=== PATIENT | male | born 1945 | race Caucasian/White ===

== ENCOUNTER → 2021-06-18 15:01 | Outpatient (CLI) | payer MEDICARE, SELFPAY ==
--- NOTE | ~2021-06-18 | XR_ITS ---
XR knee RT min 4V DATE: 06/18/2021 15:22 INDICATION: Right knee pain. Knee gives out. No recent injury. TECHNIQUE: [place], AP, PA and lateral views COMPARISON: None FINDINGS: There is osteopenia. There is severe tricompartment osteoarthritis, most severe at the lateral component with complete obl iteration of lateral compartment joint space. There is prominent periarticular spurring at the patell ofemoral joint. There is degenerative cystic change subjacent to the medial tibial spine. There is va lgus deformity of the right knee. No fracture or dislocation, periosteal reaction or bone destruction, radiopaque intra-articular loose body or chondrocalcinosis is evident. IMPRESSION: Severe tricompartment osteoarthritis Osteopenia Valgus deformity Reviewed, dictated and finalized at location B. 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
== END ==
PROVIDERS: PCP Family Medicine; Visit Provider Family Medicine
DX: M25.561 Pain in right knee (principal); M17.11 Unilateral primary osteoarthritis, right knee; M85.861 Other specified disorders of bone density and structure, right lower leg; M21.061 Valgus deformity, not elsewhere classified, right knee
CPT/HCPCS: 73564

== ENCOUNTER → 2022-08-30 10:48 | Outpatient (CLI) | payer MEDICARE, SELFPAY ==
--- NOTE | ~2022-08-30 | XR_ITS ---
Cervical Spine: AP, lateral, open-mouth views Clinical History: Pain Findings: The normal lordotic curve is maintained. No fracture or sublocation seen. There is mild deg enerative disc change at C4-C5, C5-C6, and C6-C7. There is mild facet arthropathy the mid to lower th oracic spine. Pre-vertebral soft tissues are unremarkable. Impression: Mild degenerative spondylosis, as above. Reviewed, dictated and finalized at location M. Impression: Mild degenerative spondylosis, as above.
== END ==
PROVIDERS: PCP Family Medicine; Visit Provider Nurse Practitioner Family
DX: M54.2 Cervicalgia (principal)
CPT/HCPCS: 72040

== ENCOUNTER 2022-10-27 10:36 | Outpatient (CLI) | payer MEDICARE, SELFPAY ==
--- NOTE | ~2022-10-27 | CT_ITS ---
EXAMINATION: CT cervical spine wo con DATE: 10/27/2022 10:53 INDICATION: Spondylosis without myelopathy TECHNIQUE: Computed tomography (CT) of the cervical spine was performed without intravenous contrast. Automated exposure control and iterative reconstruction technique were employed. The dose-length pro duct was 229.04 mGy-cm. COMPARISON: Cervical spine radiographs dated 08/30/2022 FINDINGS: Alignment is normal. Vertebral body heights are normal. Moderate disc height loss at C4-C5 through C6 -C7. Mild disc height loss at C3-C4, T1-T2 and T2-T3 there is developing fusion across the disc space and left uncovertebral joint at C4-C5. Small amount of atherosclerotic calcification at the bilatera l carotid bulbs. Cervical soft tissues are otherwise unremarkable. Severe emphysema the apices of thomas gs. The following disc levels are specifically discussed: C2-C3: There is minimal bilateral uncovertebral joint osteoarthritis. There is mild bilateral facet joint osteoarthritis. There is no neural foraminal stenosis. There is no central canal stenosis. C3-C4: Small posterior disc osteophyte complex. There is moderate to severe right and severe left unc overtebral joint osteoarthritis. There is moderate right and severe left facet joint osteoarthritis. There is mild right and moderate left neural foraminal stenosis. There is altered central canal steno sis. C4-C5: Disc is mildly bulging. There is mild right uncovertebral joint osteoarthritis. Moderate hyper trophic changes with fusion across the left uncovertebral joint. Prominent hypertrophic changes and f usion across the left facet joint. Mild osteoarthritis with developing fusion across the margins of t he right facet joint. There is mild left neural foraminal stenosis. There is mild central canal steno sis. C5-C6: Posterior disc osteophyte complex. There is severe bilateral uncovertebral joint osteoarthriti s. There is mild right and moderate left facet joint osteoarthritis. There is mild bilateral neural f oraminal stenosis. There is mild central canal stenosis. C6-C7: Posterior disc osteophyte complex. There is severe bilateral uncovertebral joint osteoarthriti s. There is moderate bilateral facet joint osteoarthritis. There is mild bilateral neural foraminal s tenosis. There is mild central canal stenosis. C7-T1: There is minimal bilateral uncovertebral joint osteoarthritis. There is severe bilateral facet joint osteoarthritis. There is mild bilateral neural foraminal stenosis. There is no central canal s tenosis. IMPRESSION: 1. Moderate cervical spondylosis. 2. Severe emphysema at the bilateral apices of lungs. Reviewed, dictated and finalized at location A.
== END 2022-10-27 10:37 ==
PROVIDERS: PCP Family Medicine; Visit Provider Pain Medicine Pain Medicine
DX: M47.812 Spondylosis without myelopathy or radiculopathy, cervical region (principal); J43.9 Emphysema, unspecified
CPT/HCPCS: 72125

== ENCOUNTER 2023-04-19 06:34 | Outpatient (CLI) | payer MEDICARE, SELFPAY ==
--- NOTE | ~2023-04-19 | XR_ITS ---
EXAMINATION:XR cervical spine 4-5V DATE: 04/19/2023 07:08 INDICATION: Neck pain TECHNIQUE: AP, lateral in neutral, flexion, extension, and odontoid views of the cervical spine are p rovided. COMPARISON: 08/30/2022 FINDINGS: There are 2 mm of retrolisthesis of C5 on C6. No hypermobility is present with flexion or e xtension. The odontoid process is intact. No fracture is identified. There is moderate loss of interv ertebral disc space height at C5-6 and C6-7. The vertebral body heights are maintained. There is mult ilevel moderate facet and uncovertebral joint osteoarthritis. Prevertebral soft tissues are normal. S mall degenerative osteophytes project from the anterior endplates of multiple vertebral bodies. IMPRESSION: 1. Moderate cervical spondylosis without acute findings or significant interval change. Reviewed, dictated and finalized at location L. ICAL MANAGER
--- NOTE | ~2023-04-19 | MR_ITS ---
MRI of the cervical spine Clinical History: Spondylosis Technique: Axial T2-weighted and gradient images, and sagittal T1-weighted, T2-weighted, and STIR elmer ges were acquired. Findings: There is no fracture or subluxation of the cervical spine. Vertebral bodies maintain normal height and alignment. There is mildly heterogeneous marrow signal, compatible with reactive changes due to underlying degenerative disc disease and a red marrow conversion. No suspicious bone marrow si gnal abnormality seen. At C2-C3, there is no disc bulge or herniation. No spinal canal stenosis, cord compression, or neural foraminal narrowing. At C3-C4, there is minimal disc ossify complex and mild facet arthropathy bilaterally. No juhi spina l canal stenosis or cord compression. Possible minimal left neural foraminal narrowing. Right neural foramen preserved. At C4-C5, there is no significant disc bulge. There is minimal facet arthropathy. No central canal st enosis, cord compression, or neural foraminal narrowing. At C5-C6, there is advanced degenerative disc narrowing. There is mild disc osteophyte complex with m ild facet arthropathy. Probable minimal bilateral neural foraminal narrowing. No central canal stenos is or cord compression. At C6-C7, there is advanced degenerative disc narrowing. There is mild disc ossify complex. No juhi spinal canal stenosis or cord compression. There is probable left neural foraminal narrowing. Right n eural foramen preserved. No abnormal signal seen in the spinal cord. Paravertebral soft tissues are unremarkable. Impression: Mild degenerative spondylosis overall, as detailed above. Reviewed, dictated and finalized at [facility]. RNMENT GAUGER Impression: Mild degenerative spondylosis overall, as detailed above.
== END 2023-04-19 06:35 | disposition home or self-care (01) ==
PROVIDERS: PCP Family Medicine; Visit Provider Neurological Surgery
DX: M47.812 Spondylosis without myelopathy or radiculopathy, cervical region (principal)
CPT/HCPCS: 72050; 72141

== ENCOUNTER 2023-07-01 19:30 | Inpatient (IN) | payer MEDICARE, SELFPAY ==
--- NOTE | ~2023-07-01 | CT_ITS ---
EXAMINATION: CT abdomen pelvis wo con DATE: 07/01/2023 23:14 INDICATION: Renal failure TECHNIQUE: Computed tomography (CT) of the abdomen and pelvis was performed without intravenous contr ast. The dose-length product (DLP) was 324.84 mGy-cm. Automated exposure control and iterative recons truction technique were employed. COMPARISON: None FINDINGS: The lung bases are clear. The heart size is normal. Changes of cholecystectomy are noted. P unctate calcifications in otherwise normal appearing liver and spleen likely represent healed granulo matous disease. Punctate calcifications of the pancreas may reflect chronic pancreatitis. The adrenal glands are unremarkable. There is marked distention of the urinary bladder resulting in moderate to severe bilateral hydroureteronephrosis. There is calcified atherosclerosis of the aorta and many of t he other arteries. No pathologically enlarged abdominal or pelvic lymph nodes are identified. No free intraperitoneal gas or evidence of bowel obstruction. There is mild lumbar spondylosis. IMPRESSION: 1. Marked distention of the urinary bladder with resulting moderate to severe bilateral hydroureteron ephrosis. Reviewed, dictated and finalized at location F. ESTRA LEADER IMPRESSION: 1. Marked distention of the urinary bladder with resulting moderate to severe b ilateral hydroureteronephrosis.
--- NOTE | ~2023-07-01 | US_ITS ---
EXAMINATION: US renal BI DATE: 07/04/2023 16:43 INDICATION: Bilateral hydronephrosis TECHNIQUE: Multiple ultrasound grayscale images of the kidneys were obtained. COMPARISON: CT dated 07/01/2023 FINDINGS: The right kidney measures 10.7 x 5.6 x 5.8 cm. The left kidney measures 10.9 x 4.9 x 5.2 cm. The kidn eys demonstrate normal echogenicity. There is mild bilateral hydronephrosis. No stones identified. Th ere is large amount of hypoechoic material with punctate echogenic foci in the bladder lumen surround ing the bulb of a Johnson catheter.. IMPRESSION: 1. Mild hydronephrosis in both kidneys which appear otherwise normal. 2. Large amount of hypoechoic material filling the bladder surrounding the Johnson catheter with no gisell dent correlate on the recent prior CT suggesting this represents acute clot. Reviewed, dictated and finalized at location A. CTOR MEDICAL SCIENCE IMPRESSION: 1. Mild hydronephrosis in both kidneys which appear otherwise normal. 2. Large amount of hypoechoic material filling the bladder surrounding the Fole y catheter with no evident correlate on the recent prior CT suggesting this rep resents acute clot.
[2023-07-01 20:10] VITALS: BP 141/77; PULSE 81; RESP 18; TEMP 36.6; O2SAT 99
[2023-07-01 20:41] LABS: Basophils Percent Auto 0.4 % (0.2-1.2); Eosinophils Absolute Auto 0.4 K/mm3 (0-0.3); Eosinophils Percent Auto 5.1 % (0-4.4); Hematocrit 31.4 % (42.0-52.0); Hemoglobin 10.7 g/dL (14.0-18.0); Immature Granulocyte Absolute 0.08 K/mm3 (0.00-0.031); Immature Granulocyte Percent A 1.1 % (0-0.5); Lymphocytes Absolute Auto 1.99 K/mm3 (0.9-3.2); Lymphocytes Percent Auto 26.6 % (18.3-44.2); Mean Corpuscular HGB Conc 34.1 g/dl (32-36); Mean Corpuscular Hemoglobin 29.9 pg (26-34); Mean Corpuscular Volume 87.7 fl (80-100); Mean Platelet Volume 9.7 fl (7.4-10.4); Monocytes Absolute Auto 0.6 K/mm3 (0.1-0.6); Monocytes Percent Auto 7.5 % (2.6-8.5); Neutrophils Absolute Auto 4.5 K/mm3 (1.3-6.7); Neutrophils Percent Auto 59.3 % (45.5-73.1); Platelet Count Result 182 k/mm3 (150-375); Red Blood Count 3.58 M/mm3 (4.6-6.20); Red Cell Distribution Width 13.8 % (11.5-14.5); White Blood Count 7.5 K/mm3 (4.5-10.0)
[2023-07-01 20:48] LABS: Alanine Aminotransferase 13 U/L (6-50); Albumin Level 4.9 g/dL (3.5-5.1); Alkaline Phosphatase 58 U/L (38-126); Anion Gap 11 mmol/L (8-16); Aspartate Amino Transferase 17 U/L (17-59); Bilirubin,Total 0.4 mg/dL (0.2-1.3); Blood Urea Nitrogen 53 mg/dL (9-20); Calcium 10.1 mg/dL (8.4-10.2); Carbon Dioxide 23 mmol/L (22-30); Chloride 106 mmol/L (98-107); Estimated CRCL calculation 16 ml/min; Estimated Glomerular Filt Rate 15; Glucose 85 mg/dL (65-110); Potassium 4.3 mmol/L (3.4-5.0); Sodium 140 mmol/L (137-145)
[2023-07-01 20:53] LABS: Appearance Urine Clear (Clear); Bacteria Urine None Seen /hpf; Bilirubin Urine Negative (Negative); Blood Urine Trace (Negative); Color Urine Yellow (Yellow); Glucose Urine UA Negative (Negative); Ketones Urine Negative (Negative); Leukocyte Esterase Ur Negative LEU/UL (Negative); Nitrate Urine Negative (Negative); Non Pathogenic Casts 0-2; Protein Urine Negative (Negative); RBC Urine 0-2 /hpf (0-2); Specific Grav Ur 1.007 (1.001-1.035); Squamous Epithelial Cell Urine None seen /hpf (Few); Urobilinogen Urine 0.2 mg/dL (<2.0); WBC Urine 0-5 /hpf
[2023-07-01 20:59] LABS: Add Urine Microscopic? YES
[2023-07-01] MEDS: SODIUM CHLORIDE 0.9% IV 1,000 ML 999 ML IV CONT (22:52)
[2023-07-01 22:56] VITALS: PULSE 67; RESP 15; O2SAT 100
--- NOTE | 2023-07-01 23:53 | ED.GENADULT ---
HPI - General Adult General Chief complaint: Recheck/Abnormal Lab/Rx Stated complaint: dx with AKF, wants 2nd opinion Time Seen by Provider: 07/01/23 22:37 History of Present Illness HPI narrative: Patient is a 77-year-old gentleman who presents emergency department with chief complaint of renal failure. Patient reports that he had outpatient labs done in the [place] system that showed that his kidney function was not doing well. The patient was instructed to go to the emergency department. The patient reports that he is not having any other real significant complaints does report that he has normal urinary function denies shortness of breath or chest pain. The patient reports that he does not want to be admitted at the [facility] Related Data Home Medications Medication Instructions Recorded Confirmed quetiapine 100 mg tablet 100 mg PO .COMPLEX 10/02/19 01/24/23 bupropion HCl 100 mg tablet,12 hr 100 mg PO BID 07/01/22 01/24/23 sustained-release (Wellbutrin SR) potassium chloride 10 mEq 10 meq PO DAILY 07/01/22 01/24/23 tablet,extended release Allergies Allergy/AdvReac Type Severity Reaction Status Date / Time pollen extracts Allergy Itching Verified 07/01/23 20:13 Review of Systems Review of Systems: A 10 system review of systems was completed on the patient and is negative except for what is stated in the HPI. Nursing and ancillary documentation was reviewed. [facility] Past Medical History Medical History Acute bronchitis Acute non-recurrent maxillary sinusitis BMI 26.0-26.9,adult BMI 28.0-28.9,adult COVID-19 (~01/2022) positive test on 03/01/2022 with symptoms for 3 weeks. Enlarged liver Folate deficiency anemia (08/03/21) level low at 4.6 on 08/03/2021. Microscopic hematuria (08/03/21) trace blood on urinalysis 08/03/2021. Myalgia of muscle of neck Neck Pain X-ray of the C-spine on 08/30/2022 with mild degenerative arthritis and spondylosis. CT of the cervical spine ordered by Pain Management on 10/27/2022 reveals moderate cervical spondylosis with severe emphysema noted at the apices. Osteoarthritis of right knee Seasonal allergic rhinitis Tremor Unexplained weight loss TSH normal at 1.42 on 08/03/2021. Surgical History Surgical History History of cholecystectomy History of right knee surgery Family History Family History Mother Patient's mother is Family history of malignant neoplasm Father Family history of cardiovascular disease, Onset Age: 72 Social History Social History Smoking packs per day: 0.5 Smoking cigarettes per day: 10.0 Years smoked: 60 Smoking pack-years: 30.00 Smoking status: Current every day smoker Tobacco type: cigarettes Alcohol intake: current Substance use: never Substance use type: does not use Do You Feel Safe in your Home?: Yes Lack of Transportation: No Lack of Food: Never True Current Housing: I Have Housing Concerned About Future Housing: No Difficulty Paying Gas/Electric Bills: No Difficulty Paying for Meds: No Currently Unemployed: No Education: High School Diploma/GED Difficulty w/ Childcare or Family Care: No Living arrangements: with family Gender identity (if verbalized by the patient): Male Exam Narrative: GENERAL: Well-appearing, well-nourished, and in no acute distress. HEAD: Normocephalic, atraumatic. EYES: PERRLA and EOMI. ENT: Nares clear, no rhinorrhea or epistaxis. Mucous membranes moist. NECK: Supple. CHEST: Clear to auscultation. No respiratory distress. HEART: Regular rate and rhythm. No murmur heard. Normal peripheral pulses. ABDOMEN: Soft, nontender, nondistended, normal active bowel sounds. EXTREMITIES: Normal range of motio
[2023-07-02] VITALS (8 sets, daily range): BP systolic 122–166; BP diastolic 50–80; PULSE 68–83; RESP 15–18; TEMP 36.8–37.4; O2SAT 95–100
[2023-07-02] MEDS: SODIUM CHLORIDE 0.9% IV 1,000 ML 125 ML IV CONT ×3 (01:55→20:40)
--- NOTE | 2023-07-02 03:06 | ADMGEN ---
This patient, Marce Jarvis, was admitted to Medical Room 347-. Patient/family oriented to hospital policies and general routines including ID bracelet, bed and alarms, visiting hours, pain management, procedures, bathroom and other care routines, personal items, smoking policy, room service/diet, and visiting hours. Information on how to activate the Rapid Response Team has been discussed. Patient/Family are encouraged to report perceived risks to care and to ask questions if they do not understand what they are told or what they should do.
--- NOTE | 2023-07-02 05:24 | PM.IMHP ---
H&P: HPI History of Present Illness Date/Time: 07/02/23 05:24 Chief Complaint: Renal failure on outpatient labs Narrative: 77-year-old male with past medical history of hyperlipidemia, COPD, chronic atrial fibrillation on chronic anticoagulation among other medical comorbidities who presented to the ER after outpatient labs demonstrated acute renal failure. The patient reports that he was getting his yearly labs and got a call that his creatinine was elevated and he needed to go to the ER. In hindsight he now realizes that he was probably having difficulty urinating for a while. He reports he has had a weak urinary stream for at least 1 month. He has had increased urinary urgency and sensation of incomplete bladder emptying. He denied any dysuria or or gross hematuria. However after Johnson catheter was placed in the ER patient had gross hematuria. He had 1.7 L of retained urine on presentation to the ER. He denies a known history of BPH. He has not had any associated nausea, vomiting or decreased appetite. In hindsight he does notice that his abdomen had been more distended especially in the last week. He denied any fatigue or shortness of breath. He does have a history of COPD but reports that his breathing is stable. He denies any significant coronary artery disease history but he does have chronic atrial fibrillation and is on Xarelto. Review of Systems Review of Systems: 12 systems were reviewed with pertinent positives and negatives per HPI. Except as documented in the HPI, all other systems were reviewed and are negative. [facility] Past Medical History Medical History (Updated 07/02/23 @ 08:28 by Tatiana Awan, ) Acute bronchitis Cervical spondylosis X-ray of the cervical spine and MRI of the cervical spine on 04/19/2023 reveals advanced degenerative disc disease at C5-C6 and C6-C7 with facet arthropathy. Chronic anticoagulation Chronic anxiety Chronic atrial fibrillation Chronic depression COPD (chronic obstructive pulmonary disease) COVID-19 (~01/2022) positive test on 03/01/2022 with symptoms for 3 weeks. Enlarged liver Essential (primary) hypertension Folate deficiency anemia (08/03/21) level low at 4.6 on 08/03/2021. Microscopic hematuria (08/03/21) trace blood on urinalysis 08/03/2021. Mixed hyperlipidemia Total cholesterol 140, triglycerides 230, HDL 35, LDL 73 on 08/03/2021. Neck Pain X-ray of the C-spine on 08/30/2022 with mild degenerative arthritis and spondylosis. CT of the cervical spine ordered by Pain Management on 10/27/2022 reveals moderate cervical spondylosis with severe emphysema noted at the apices. Obstructive sleep apnea of adult Osteoarthritis of right knee Posttraumatic stress disorder Restless legs syndrome Iron 71 with 20% saturation and ferritin 44 on 08/03/2021. Seasonal allergic rhinitis Tobacco use disorder, continuous Tremor Type 2 diabetes mellitus without complication, without long-term current use of insulin Glucose 101 with hemoglobin A1c 5.2 on 08/03/2021. Surgical History Surgical History (Updated 07/02/23 @ 08:14 by Tatiana Awan DO) History of cholecystectomy History of colonoscopy with polypectomy History of right knee surgery Family History Family History Mother Patient's mother is Family history of malignant neoplasm Father Family history of cardiovascular disease, Onset Age: 72 Social History Social History (Updated 07/02/23 @ 08:16 by Tatiana Awan DO) Social History: He lives at home with his . He served in the for a total of 22 years. 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 He has smoked half a pack of cigarettes per day since he was 17. He used to drink quite heavily but has not done so in at least 20 years. He denies illicit substance use. Code status: Full code Surrogate decision maker: Smoking packs per day: 0.5 Smoking cig
[2023-07-02 05:39] LABS: Basophils Percent Auto 0.3 % (0.2-1.2); Eosinophils Absolute Auto 0.4 K/mm3 (0-0.3); Eosinophils Percent Auto 4.3 % (0-4.4); Hematocrit 26.8 % (42.0-52.0); Hemoglobin 9.3 g/dL (14.0-18.0); Immature Granulocyte Percent A 1.1 % (0-0.5); Lymphocytes Absolute Auto 1.69 K/mm3 (0.9-3.2); Lymphocytes Percent Auto 18.9 % (18.3-44.2); Mean Corpuscular HGB Conc 34.7 g/dl (32-36); Mean Corpuscular Hemoglobin 30.3 pg (26-34); Mean Corpuscular Volume 87.3 fl (80-100); Mean Platelet Volume 9.8 fl (7.4-10.4); Monocytes Absolute Auto 0.7 K/mm3 (0.1-0.6); Monocytes Percent Auto 7.4 % (2.6-8.5); Neutrophils Absolute Auto 6.1 K/mm3 (1.3-6.7); Platelet Count Result 162 k/mm3 (150-375); Red Blood Count 3.07 M/mm3 (4.6-6.20); Red Cell Distribution Width 13.8 % (11.5-14.5); White Blood Count 8.9 K/mm3 (4.5-10.0)
[2023-07-02 05:50] LABS: Anion Gap 5 mmol/L (8-16); Blood Urea Nitrogen 50 mg/dL (9-20); Carbon Dioxide 24 mmol/L (22-30); Chloride 111 mmol/L (98-107); Estimated CRCL calculation 17 ml/min; Estimated Glomerular Filt Rate 16; Glucose 126 mg/dL (65-110); Sodium 140 mmol/L (137-145)
[2023-07-02] MEDS: FLUTICASONE/SALMETEROL 115-21 MCG INHALER 1 PUFF 2 PUFF INHALATION ×2 (07:56→22:22)
[2023-07-02] MEDS: QUEtiapine FUMARATE 25 MG TABLET 50 MG PO (09:32)
[2023-07-02] MEDS: buPROPion HCL SR (12HR) 100 MG TABCR PO ×2 (09:32→20:37)
[2023-07-02] MEDS: ATORVASTATIN 20 MG TABLET PO (09:32)
[2023-07-02] MEDS: METOPROLOL SUCCINATE EXT REL 50 MG TABCR PO (09:32)
[2023-07-02] MEDS: FOLIC ACID 1 MG TABLET PO (09:32)
[2023-07-02] MEDS: ESCITALOPRAM OXALATE 10 MG TABLET 20 MG PO (09:33)
[2023-07-02] MEDS: DIGOXIN TAB 125 MCG TABLET PO (09:37)
[2023-07-02] MEDS: FLUTICASONE PROPIONATE 0.05% NA SPR 16 GM BTL (*BKC) 1 SPRAY NASAL ×2 (09:37→20:38)
[2023-07-02] MEDS: TAMSULOSIN HCL 0.4 MG CAPSULE PO (09:41)
[2023-07-02 10:31] LABS: Digoxin < 0.5 ng/mL (0.8-2.0)
--- NOTE | 2023-07-02 16:22 | WPDURCON ---
Assessment and Plan Assessment and plan (1) Acute urinary retention: Code(s): R33.8 - Other retention of urine Status: Acute Assessment and Plan: Maintain Johnson in place to gravity drainage. DO NOT REMOVE. (2) Bilateral hydronephrosis: Code(s): N13.30 - Unspecified hydronephrosis Status: Acute Assessment and Plan: Likely related to bladder outlet obstruction. Will consider renal ultrasound in 2-3 days to reassess. Continue to monitor renal function. (3) SANTOS (acute kidney injury): Code(s): N17.9 - Acute kidney failure, unspecified Status: Acute Assessment and Plan: Suspect post-renal etiology. Improving with bladder decompression. Continue to trend renal function. (4) Gross hematuria: Code(s): R31.0 - Gross hematuria Status: Acute Assessment and Plan: Suspect decompressive hematuria given large volume >1.7L retention. No need for CBI at this time. Notify urology if concerns regarding catheter drainage. (5) BPH with urinary obstruction: Code(s): N40.1 - Benign prostatic hyperplasia with lower urinary tract symptoms; N13.8 - Other obstructive and reflux uropathy Status: Acute Assessment and Plan: Continue Tamsulosin which was initiated during this hospitalization Urology Consult Note HPI Date Seen: 07/02/23 Requesting Physician: Tatiana Awan DO Primary Care Provider: Alexx Luciano MD Consult Narrative Narrative: Marce Jarvis is a 77 year old male with PMHx of A-fib on Xarelto, COPD, DM2, HLD for whom urology was consulted for acute on chronic urinary retention with SANTOS and bilateral hydroureteronephrosis. Patient reports over the past couple days he had difficulty urinating. He reports over the past 6 months he has started voiding nearly every hour during his waking hours. He denies history of frequent/recurrent UTI. He denies having a urologist in the past. He denies history of gross hematuria. He reports he has noticed his lower abdomen become more swollen over recent times. He denies prior spinal injury or spinal/pelvic surgery. He currently denies fevers, chills, nausea, vomiting, CP, SOB, or other concerns at this time. He reports tolerating his Johnson catheter fairly well. Review of Systems Cardiovascular: Cardiovascular: Denies chest pain, Denies lightheadedness, Denies palpitations and Denies dyspnea Respiratory: Respiratory: Denies dyspnea Gastrointestinal: Gastrointestinal: Denies diarrhea, Denies nausea and Denies vomiting Genitourinary: Genitourinary: Denies dysuria Endocrine: Endocrine: Denies palpitations [facility] Past Medical History Medical History (Updated 07/02/23 @ 16:30 by Nilson Briceno MD) Acute bronchitis Cervical spondylosis X-ray of the cervical spine and MRI of the cervical spine on 04/19/2023 reveals advanced degenerative disc disease at C5-C6 and C6-C7 with facet arthropathy. Chronic anticoagulation Chronic anxiety Chronic atrial fibrillation Chronic depression COPD (chronic obstructive pulmonary disease) COVID-19 (~01/2022) positive test on 03/01/2022 with symptoms for 3 weeks. Enlarged liver Essential (primary) hypertension Folate deficiency anemia (08/03/21) level low at 4.6 on 08/03/2021. Microscopic hematuria (08/03/21) trace blood on urinalysis 08/03/2021. Mixed hyperlipidemia Total cholesterol 140, triglycerides 230, HDL 35, LDL 73 on 08/03/2021. Neck Pain X-ray of the C-spine on 08/30/2022 with mild degenerative arthritis and spondylosis. CT of the cervical spine ordered by Pain Management on 10/27/2022 reveals moderate cervical spondylosis with severe emphysema noted at the apices. Obstructive sleep apnea of adult Osteoarthritis of right knee Posttraumatic stress disorder Restless legs syndrome Iron 71 with 20% saturation and ferritin 44 on 08/03/2021. Seasonal allergic rhinitis Tobacco use disorder, continuous Tremor Type 2 diabetes mellitus without complic
--- NOTE | 2023-07-02 17:13 | PM.IMPN ---
Progress Note: A&P Assessment and Plan (1) Acute renal failure: Qualifiers: Acute renal failure type: unspecified Qualified Code(s): N17.9 - Acute kidney failure, unspecified Code(s): N17.9 - Acute kidney failure, unspecified Status: Acute Assessment and Plan: Creatinine on 06/30 4.1, 3/to 3.8 Continue to monitor following decompression of urinary tract with Johnson catheter (2) BPH with urinary obstruction: Code(s): N40.1 - Benign prostatic hyperplasia with lower urinary tract symptoms; N13.8 - Other obstructive and reflux uropathy Status: Acute Assessment and Plan: Continue Johnson catheter (3) Type 2 diabetes mellitus without complication, without long-term current use of insulin: Code(s): E11.9 - Type 2 diabetes mellitus without complications Status: Acute Assessment and Plan: Continue to hold metformin and monitor blood sugars on sliding scale 3/2 remained euglycemic (4) Chronic anticoagulation: Code(s): Z79.01 - watermaster (current) use of anticoagulants Status: Acute Assessment and Plan: Xarelto for hx afib on hold due to bleeding (5) Tobacco use disorder, continuous: Code(s): F17.209 - Nicotine dependence, unspecified, with unspecified nicotine-induced disorders Status: Acute (6) Normocytic anemia: Code(s): D64.9 - Anemia, unspecified Status: Acute Assessment and Plan: Possibly due to combination of blood loss and renal failure (7) Gross hematuria: Code(s): R31.0 - Gross hematuria Status: Acute Assessment and Plan: Xarelto on hold Subjective Date/time seen: 07/02/23 17:13 Interval history: Complains of irritation at Johnson insertion site. Complains of restlessness and irritability. Usually smokes about 7 cigarettes per day. No alcohol or other recreational drug use. Denied chest pain or shortness of breath. Denied GI issues. Denied abnormal bleeding. Denied focal weakness or numbness. Appetite good. Review of Systems Review of Systems: All systems reviewed & are unremarkable except as noted in HPI and below Objective Data Vital Signs Vital Signs: Vital Signs - 24 hr 07/01/23 20:10 07/01/23 22:56 07/02/23 01:37 Temperature 97.9 F Pulse Rate 81 67 68 Respiratory Rate 18 15 15 Blood Pressure 141/77 H 166/80 H Pulse Oximetry 99 100 100 Oxygen Delivery Room Air 07/02/23 04:46 07/02/23 08:02 07/02/23 09:32 Temperature 98.2 F Pulse Rate 75 83 Respiratory Rate 18 Blood Pressure 157/77 H Pulse Oximetry 100 95 Oxygen Delivery Room Air 07/02/23 09:37 07/02/23 13:30 07/02/23 14:00 Temperature 98.2 F Pulse Rate 83 83 80 Respiratory Rate 18 Blood Pressure 122/55 L Pulse Oximetry 95 97 Oxygen Delivery Room Air Intake/Output Intake/Output: Intake & Output 06/29/23 06/30/23 07/01/23 07/02/23 23:59 23:59 23:59 23:59 Intake Total 2840 Output Total 2200 Balance 640 Meds/Results Medications: Active Medications Generic Name Dose Route Start Last Admin Trade Name Freq PRN Reason Stop Dose Admin Acetaminophen 650 mg 07/02/23 00:47 Acetaminophen 325 Mg Tablet PO Q4H PRN Mild Pain (1-3) or Fever Albuterol 2 puff 07/02/23 05:27 Albuterol Sulfate (*Sp) Aerosol 1 Puff INHALATION Q4HRT PRN shortness of breath or wheezing Atorvastatin Calcium 20 mg 07/02/23 09:00 07/02/23 09:32 Atorvastatin 20 Mg Tablet PO 20 mg DAILY RANDOLPH Administration Bupropion HCl 100 mg 07/02/23 09:00 07/02/23 09:32 Bupropion Hcl Sr (12hr) 100 Mg Tabcr PO 100 mg Q12HR RANDOLPH Administration Digoxin 125 mcg 07/02/23 09:00 07/02/23 09:37 Digoxin Tab 125 Mcg Tablet PO 125 mcg DAILY RANDOLPH Administration Escitalopram Oxalate 20 mg 07/02/23 09:00 07/02/23 09:33 Escitalopram Oxalate 10 Mg Tablet PO 20 mg DAILY RANDOLPH Administration Fluticasone Propionate 1 spray
[2023-07-02] MEDS: NICOTINE (*PBKC) 14 MG PATCH 1 PATCH TRANSDERM (17:56)
[2023-07-02] MEDS: MELATONIN 5 MG TABLET 10 MG PO (20:37)
[2023-07-02] MEDS: rOPINIRole HCL 0.25 MG TABLET PO (20:37)
[2023-07-02] MEDS: QUEtiapine FUMARATE 100 MG TABLET 300 MG PO (20:38)
[2023-07-03] VITALS (8 sets, daily range): BP systolic 119–133; BP diastolic 47–52; PULSE 71–81; RESP 16–18; TEMP 36.5–37.3; O2SAT 96–98
[2023-07-03] MEDS: FLUTICASONE/SALMETEROL 115-21 MCG INHALER 1 PUFF 2 PUFF INHALATION ×2 (07:48→20:40)
[2023-07-03 08:01] LABS: Hematocrit 24.3 % (42.0-52.0); Hemoglobin 8.2 g/dL (14.0-18.0); Mean Corpuscular HGB Conc 33.7 g/dl (32-36); Mean Corpuscular Hemoglobin 29.9 pg (26-34); Mean Corpuscular Volume 88.7 fl (80-100); Platelet Count Result 124 k/mm3 (150-375); Red Blood Count 2.74 M/mm3 (4.6-6.20); Red Cell Distribution Width 13.9 % (11.5-14.5); White Blood Count 6.4 K/mm3 (4.5-10.0)
[2023-07-03 08:16] LABS: Anion Gap 6 mmol/L (8-16); Blood Urea Nitrogen 43 mg/dL (9-20); Carbon Dioxide 23 mmol/L (22-30); Chloride 112 mmol/L (98-107); Estimated CRCL calculation 18 ml/min; Estimated Glomerular Filt Rate 17; Glucose 121 mg/dL (65-110); Sodium 141 mmol/L (137-145)
[2023-07-03] MEDS: SODIUM CHLORIDE 0.9% IV 1,000 ML 125 ML IV CONT ×2 (09:34→15:45)
[2023-07-03] MEDS: TAMSULOSIN HCL 0.4 MG CAPSULE PO (09:36)
[2023-07-03] MEDS: METOPROLOL SUCCINATE EXT REL 50 MG TABCR PO (09:37)
[2023-07-03] MEDS: FOLIC ACID 1 MG TABLET PO (09:37)
[2023-07-03] MEDS: buPROPion HCL SR (12HR) 100 MG TABCR PO ×2 (09:38→20:27)
[2023-07-03] MEDS: DIGOXIN TAB 125 MCG TABLET PO (09:38)
[2023-07-03] MEDS: ESCITALOPRAM OXALATE 10 MG TABLET 20 MG PO (09:38)
[2023-07-03] MEDS: QUEtiapine FUMARATE 25 MG TABLET 50 MG PO (09:38)
[2023-07-03] MEDS: NICOTINE (*PBKC) 14 MG PATCH 1 PATCH TRANSDERM (09:39)
[2023-07-03] MEDS: FLUTICASONE PROPIONATE 0.05% NA SPR 16 GM BTL (*BKC) 1 SPRAY NASAL ×2 (09:39→20:28)
[2023-07-03] MEDS: ATORVASTATIN 20 MG TABLET PO (09:40)
--- NOTE | 2023-07-03 11:39 | PM.IMPN ---
Progress Note: A&P Assessment and Plan (1) Acute renal failure: Qualifiers: Acute renal failure type: unspecified Qualified Code(s): N17.9 - Acute kidney failure, unspecified Code(s): N17.9 - Acute kidney failure, unspecified Status: Acute Assessment and Plan: Creatinine on 06/30 4.1, 07/01 3.8, 07/02 3.6 Continue to monitor following decompression of urinary tract with Renteria catheter (2) BPH with urinary obstruction: Code(s): N40.1 - Benign prostatic hyperplasia with lower urinary tract symptoms; N13.8 - Other obstructive and reflux uropathy Status: Acute Assessment and Plan: Continue Renteria catheter (3) Type 2 diabetes mellitus without complication, without long-term current use of insulin: Code(s): E11.9 - Type 2 diabetes mellitus without complications Status: Acute Assessment and Plan: Continue to hold metformin and monitor blood sugars on sliding scale 3/ remained euglycemic (4) Chronic anticoagulation: Code(s): Z79.01 - USP (current) use of anticoagulants Status: Acute Assessment and Plan: Xarelto for hx afib on hold due to bleeding (5) Tobacco use disorder, continuous: Code(s): F17.209 - Nicotine dependence, unspecified, with unspecified nicotine-induced disorders Status: Acute Assessment and Plan: 07/01 Nicotine patch 14 mg ordered (6) Normocytic anemia: Code(s): D64.9 - Anemia, unspecified Status: Acute Assessment and Plan: Possibly due to combination of blood loss and renal failure hgb 10.7, 06/30 9.3, 07/01 8.2 Continue to monitor (7) Gross hematuria: Code(s): R31.0 - Gross hematuria Status: Acute Assessment and Plan: Xarelto on hold (8) Cardiac murmur: Code(s): R01.1 - Cardiac murmur, unspecified Status: Acute Assessment and Plan: Echo pending Subjective Date/time seen: 07/03/23 11:39 Interval history: Feeling much better today. Slept well. Less anxious and irritable. Less pain at renteria site. Usually smokes about 7 cigarettes per day. No alcohol or other recreational drug use. Denied chest pain or shortness of breath. Denied GI issues. Denied abnormal bleeding. Denied focal weakness or numbness. Appetite good. Review of Systems Review of Systems: All systems reviewed & are unremarkable except as noted in HPI and below Exam Narrative: Weight 80 kg BMI 23.3 Const: Other: No acute distress, well-developed well-nourished, appears stated age HENMT: Other: Mucous membranes are moist, no oral pharyngeal erythema, edentulous in upper and lower jaw Eyes: Other: Pupils are equal and reactive, no scleral icterus, no conjunctival pallor Neck: Other: No JVD Resp: Other: Clear to auscultation bilaterally, no increased work of breathing Cardio: Other: Regular rate, NL S1,2, SOFT JU RUSB GI: Other: Soft, nontender, nondistended, positive bowel sounds : Other: Renteria in place Skin: Other: No pallor, non jaundice Neuro: Other: Alert oriented x4, speech is clear, no facial asymmetry, no localizing neurologic deficits noted on exam, hard of hearing Extrem: Other: No clubbing, cyanosis or edema, moves all extremities equally Psych: Other: Pleasant and cooperative, appropriate mood and affect, judgment and insight intact Objective Data Vital Signs Vital Signs: Vital Signs - 24 hr 07/02/23 13:30 07/02/23 14:00 07/02/23 19:59 Temperature 98.2 F 99.3 F Pulse Rate 83 80 78 Respiratory Rate 18 18 Blood Pressure 122/55 L 125/50 L Pulse Oximetry 95 97 100 Oxygen Delivery Room Air Fraction of Inspired Oxygen 07/02/23 20:00 07/03/23 04:36 07/03/23 07:48 Temperature 97.7 F Pulse Rate 71 Respiratory Rate 16 Blood Pressure 119/49 L Pulse Oximetry 98 96 Oxygen Delivery Room Air Room Air Fraction of In
--- NOTE | 2023-07-03 12:36 | WPDUROPN2 ---
Progress Note: A&P Assessment and Plan (1) SANTOS (acute kidney injury): Code(s): N17.9 - Acute kidney failure, unspecified Status: Acute Assessment and Plan: Improving incrementally. Continue to monitor renal function. (2) Acute urinary retention: Code(s): R33.8 - Other retention of urine Status: Acute Assessment and Plan: Maintain Johnson. Continue Tamsulosin. Consider void trial in 1-2 weeks, could be done as outpatient. (3) Bilateral hydronephrosis: Code(s): N13.30 - Unspecified hydronephrosis Status: Acute Assessment and Plan: Will consider renal ultrasound in 1-2 days to reassess for improvement/resolution of bilateral hydronephrosis (4) Gross hematuria: Code(s): R31.0 - Gross hematuria Status: Acute Assessment and Plan: Now resolved. Suspect this was due to decompressive hematuria. Subjective Subjective Date/Time Seen: 07/03/23 12:36 Interval history: No acute events overnight. Eating lunch during time of exam. Patient feeling overall better since hospital admission. Reports tolerating his Johnson well. Denies issues with Johnson clogging or needing to be hand irrigated. Review of Systems Cardiovascular: Cardiovascular: Denies chest pain, Denies lightheadedness, Denies palpitations and Denies dyspnea Respiratory: Respiratory: Denies dyspnea Gastrointestinal: Gastrointestinal: Denies diarrhea, Denies nausea and Denies vomiting Genitourinary: Genitourinary: Denies hematuria and Denies dysuria Endocrine: Endocrine: Denies palpitations Exam Const: General: comfortable and no acute distress Neck: Neck: supple Resp: Effort & Inspection: normal respiratory effort Cardio: Rate: regular rate GI: Inspection: non-distended GI Palp: Yes Soft to palpation and No Tenderness to palpation present (GI) Urinary Catheter: Urinary Catheter: patent and draining and urine clear Psych: Mental Status: mental status grossly normal Objective Data Vital Signs Vital Signs: Vital Signs - 24 hr 07/02/23 13:30 07/02/23 14:00 07/02/23 19:59 Temperature 36.8 C 37.4 C Pulse Rate 83 80 78 Respiratory Rate 18 18 Blood Pressure 122/55 L 125/50 L Pulse Oximetry 95 97 100 Oxygen Delivery Room Air Fraction of Inspired Oxygen 07/02/23 20:00 07/03/23 04:36 07/03/23 07:48 Temperature 36.5 C Pulse Rate 71 Respiratory Rate 16 Blood Pressure 119/49 L Pulse Oximetry 98 96 Oxygen Delivery Room Air Room Air Fraction of Inspired Oxygen 07/03/23 09:37 07/03/23 09:38 Temperature Pulse Rate 81 81 Respiratory Rate Blood Pressure Pulse Oximetry Oxygen Delivery Fraction of Inspired Oxygen Intake/Output Intake/Output: Intake & Output 06/30/23 07/01/23 07/02/23 07/03/23 23:59 23:59 23:59 23:59 Intake Total 4930 1540 Output Total 3200 1200 Balance 1730 340 Meds/Results Medications: Active Medications Generic Name Dose Route Start Last Admin Trade Name Freq PRN Reason Stop Dose Admin Acetaminophen 650 mg 07/02/23 00:47 Acetaminophen 325 Mg Tablet PO Q4H PRN Mild Pain (1-3) or Fever Albuterol 2 puff 07/02/23 05:27 Albuterol Sulfate (*Sp) Aerosol 1 Puff INHALATION Q4HRT PRN shortness of breath or wheezing Atorvastatin Calcium 20 mg 07/02/23 09:00 07/03/23 09:40 Atorvastatin 20 Mg Tablet PO 20 mg DAILY RANDOLPH Administration Bupropion HCl 100 mg 07/02/23 09:00 07/03/23 09:38 Bupropion Hcl Sr (12hr) 100 Mg Tabcr PO 100 mg Q12HR RANDOLPH Administration Digoxin 125 mcg 07/02/23 09:00 07/03/23 09:38 Digoxin Tab 125 Mcg Tablet PO 125 mcg DAILY RANDOLPH Administration Escitalopram Oxalate 20 mg 07/02/23 09:00 07/03/23 09:38 Escitalopram Oxalate 10 Mg Tablet PO 20 mg DAILY RANDOLPH Administration Fluticasone Propionate 1 spray 07/02/23 09:00 07/03/23 09:39 Fluticasone Propionate 0.05% Na Spr 16 Gm Btl (*Bkc) NASAL 1 spray Q12HR
[2023-07-03] MEDS: MELATONIN 5 MG TABLET 10 MG PO (20:27)
[2023-07-03] MEDS: rOPINIRole HCL 0.25 MG TABLET PO (20:27)
[2023-07-03] MEDS: QUEtiapine FUMARATE 100 MG TABLET 300 MG PO (20:27)
[2023-07-04] VITALS (8 sets, daily range): BP systolic 119–144; BP diastolic 53–67; PULSE 70–79; RESP 16–18; TEMP 36.8–37.1; O2SAT 97–99
--- NOTE | 2023-07-04 | ECHO_ITS ---
Patient Info Name: Marce Jarvis Age: 77 years : 1945 Gender: Male Ht: 73 in Wt: 176 lbs BSA: 2.03 m2 HR: 70 bpm BP: 120 / 53 mmHg Heart Rhythm: Sinus Rhythm Technical Quality: Fair Exam Date: 07/04/2023 10:57 AM Exam Location: Echo Lab Patient Status: Inpatient Admit Date: 07/02/2023 Staff Ordering Physician: Winston Waggoner MD Last Putter Away: Attending Provider: Tatiana Awan DO Referring Physician: Rosaline SHABAZZ; Exam Type: CA echo doppler color flow Study Info Indications R01.1 - Cardiac murmur, unspecified Complete two-dimensional, color flow and Doppler transthoracic echocardiogram is performed. Summary 1. Complete two-dimensional, color flow and Doppler transthoracic echocardiogram is performed. 2. Left ventricular chamber dimension is normal. 3. Left ventricular systolic function is normal, estimated at 65-70%. 4. There is mildly increased left ventricular wall thickness. 5. The left ventricular diastolic function is grade I diastolic dysfunction. 6. Left atrial chamber dimension is mildly enlarged. 7. There is moderate aortic valve stenosis with a peak velocity of 270 cm/s, mean gradient of 16 mmHg, and aortic valve area of 1.4 cm2. 8. There is mild mitral valve regurgitation. 9. The mitral valve annulus is moderately calcified. 10. There is mild pulmonic regurgitation. Left Ventricle Left ventricular chamber dimension is normal. Left ventricular systolic function is normal, estimated at 65-70%. There is mildly increased left ventricular wall thickness. The left ventricular diastolic function is grade I diastolic dysfunction. Right Ventricle Right ventricular chamber dimension is normal. Right ventricular systolic function is normal. Left Atria Left atrial chamber dimension is mildly enlarged. Right Atria Right atrial chamber dimension is normal. Atrial Septum Intact interatrial septum visualized by color flow imaging. Aortic Valve The aortic valve is probable trileaflet. There is moderate aortic valve stenosis with a peak velocity of 270 cm/s, mean gradient of 16 mmHg, and aortic valve area of 1.4 cm2. There is trace aortic valve regurgitation. Pulmonic Valve The pulmonic valve is normal. There is no pulmonic valve stenosis. There is mild pulmonic regurgitation. Mitral Valve There is no mitral valve stenosis. There is mild mitral valve regurgitation. The mitral valve annulus is moderately calcified. Tricuspid Valve The tricuspid valve leaflets are normal. There is no significant tricuspid valve stenosis. There is trace tricuspid valve regurgitation. Pericardium/Pleural The pericardium appears normal. There is no pericardial effusion. Inferior Vena Cava Normal inferior vena cava with >50% collapse upon inspiration consistent with normal right atrial pressure, 5 mmHg. Aorta The aortic root size at the sinus of Valsalva is normal. Left Ventricular Outflow Tract Name Value Normal LVOT 2D LVOT Diameter 2.0 cm LVOT Doppler LVOT Peak Gradient 6 mmHg LVOT Mean Gradient 3 mmHg LVOT VTI 24 cm LVOT VTI/AV VTI Ratio 0.4 LVO
[2023-07-04] MEDS: SODIUM CHLORIDE 0.9% IV 1,000 ML 125 ML IV CONT ×2 (02:21→14:41)
[2023-07-04 05:55] LABS: Hematocrit 23.7 % (42.0-52.0); Hemoglobin 7.7 g/dL (14.0-18.0); Mean Corpuscular HGB Conc 32.5 g/dl (32-36); Mean Corpuscular Hemoglobin 29.1 pg (26-34); Mean Corpuscular Volume 89.4 fl (80-100); Mean Platelet Volume 9.8 fl (7.4-10.4); Platelet Count Result 133 k/mm3 (150-375); Red Blood Count 2.65 M/mm3 (4.6-6.20); Red Cell Distribution Width 13.6 % (11.5-14.5); White Blood Count 5.4 K/mm3 (4.5-10.0)
[2023-07-04 06:24] LABS: Anion Gap 5 mmol/L (8-16); Blood Urea Nitrogen 37 mg/dL (9-20); Carbon Dioxide 23 mmol/L (22-30); Chloride 112 mmol/L (98-107); Estimated CRCL calculation 23 ml/min; Estimated Glomerular Filt Rate 21; Glucose 126 mg/dL (65-110); Iron 45 ug/dL (49-181); Potassium 3.7 mmol/L (3.4-5.0); Sodium 140 mmol/L (137-145)
[2023-07-04 06:35] LABS: Percent Iron Saturation 20 % (20-50)
[2023-07-04] MEDS: FLUTICASONE/SALMETEROL 115-21 MCG INHALER 1 PUFF 2 PUFF INHALATION ×2 (07:48→20:56)
[2023-07-04] MEDS: FOLIC ACID 1 MG TABLET PO (09:06)
[2023-07-04] MEDS: buPROPion HCL SR (12HR) 100 MG TABCR PO ×2 (09:06→20:42)
[2023-07-04] MEDS: QUEtiapine FUMARATE 25 MG TABLET 50 MG PO (09:06)
[2023-07-04] MEDS: ESCITALOPRAM OXALATE 10 MG TABLET 20 MG PO (09:06)
[2023-07-04] MEDS: TAMSULOSIN HCL 0.4 MG CAPSULE PO (09:06)
[2023-07-04] MEDS: ATORVASTATIN 20 MG TABLET PO (09:06)
[2023-07-04] MEDS: METOPROLOL SUCCINATE EXT REL 50 MG TABCR PO (09:06)
[2023-07-04] MEDS: DIGOXIN TAB 125 MCG TABLET PO (09:07)
[2023-07-04] MEDS: NICOTINE (*PBKC) 14 MG PATCH 1 PATCH TRANSDERM (09:07)
--- NOTE | 2023-07-04 09:48 | WPDUROPN2 ---
Progress Note: A&P Assessment and Plan (1) Acute urinary retention: Code(s): R33.8 - Other retention of urine Status: Acute Assessment and Plan: Maintain Johnson. Continue Tamsulosin. Consider void trial in 1-2 weeks, could be done as outpatient. (2) Bilateral hydronephrosis: Code(s): N13.30 - Unspecified hydronephrosis Status: Acute Assessment and Plan: Will plan for repeat renal ultrasound today to assess for improvement/resolution following Johnson catheter placement (3) Gross hematuria: Code(s): R31.0 - Gross hematuria Status: Resolved Assessment and Plan: Now resolved. Suspect this was due to decompressive hematuria. Urine is clear, light yellow today (4) SANTOS (acute kidney injury): Code(s): N17.9 - Acute kidney failure, unspecified Status: Acute Assessment and Plan: Improving incrementally. Creatinine down to 2.9 today. Continue to monitor renal function. Subjective Subjective Date/Time Seen: 07/04/23 09:48 Interval history: Doing well today, offers no complaints. Eager for discharge home. Johnson catheter in place draining clear yellow urine. WBC within normal limits. Hemoglobin was slight decline to 7.7. Creatinine is improved, 2.9. He reports for about 4-5 weeks prior to presentation, he had had difficulty urinating and was only voiding small amounts Review of Systems Review of Systems: All systems reviewed & are unremarkable except as noted in HPI and below Exam Narrative: General: Awake, alert, comfortable, no acute distress HEENT: Normocephalic, atraumatic, sclerae anicteric Respiratory: Normal respiratory effort, no accessory muscle use Abdomen: Nondistended, soft, nontender : Johnson catheter draining clear yellow urine Skin: Normal coloration, warm and dry Neurologic: No focal neuro deficits noted Psychiatric: Appropriate mood and affect, judgment and insight intact Objective Data Vital Signs Vital Signs: Vital Signs - 24 hr 07/03/23 14:00 07/03/23 19:24 07/03/23 19:30 Temperature 98.6 F 99.1 F Pulse Rate 78 81 Respiratory Rate 18 16 Blood Pressure 120/47 L 133/52 L Pulse Oximetry 98 98 Oxygen Delivery Room Air Fraction of Inspired Oxygen 07/03/23 20:42 07/04/23 04:31 07/04/23 07:48 Temperature 98.6 F Pulse Rate 70 Respiratory Rate 17 16 Blood Pressure 120/53 L Pulse Oximetry 99 98 Oxygen Delivery Room Air Fraction of Inspired Oxygen 21 07/04/23 07:48 07/04/23 09:06 07/04/23 09:07 Temperature Pulse Rate 73 77 77 Respiratory Rate 18 Blood Pressure Pulse Oximetry Oxygen Delivery Fraction of Inspired Oxygen Intake/Output Intake/Output: Intake & Output 07/01/23 07/02/23 07/03/23 07/04/23 23:59 23:59 23:59 23:59 Intake Total 4930 5110 960 Output Total 3200 2350 2300 Balance 1730 9450 -6340 Meds/Results Medications: Active Medications Generic Name Dose Route Start Last Admin Trade Name Freq PRN Reason Stop Dose Admin Acetaminophen 650 mg 07/02/23 00:47 Acetaminophen 325 Mg Tablet PO Q4H PRN Mild Pain (1-3) or Fever Albuterol 2 puff 07/02/23 05:27 Albuterol Sulfate (*Sp) Aerosol 1 Puff INHALATION Q4HRT PRN shortness of breath or wheezing Atorvastatin Calcium 20 mg 07/02/23 09:00 07/04/23 09:06 Atorvastatin 20 Mg Tablet PO 20 mg DAILY RANDOLPH Administration Bupropion HCl 100 mg 07/02/23 09:00 07/04/23 09:06 Bupropion Hcl Sr (12hr) 100 Mg Tabcr PO 100 mg Q12HR RANDOLPH Administration Digoxin 125 mcg 07/02/23 09:00 07/04/23 09:07 Digoxin Tab 125 Mcg Tablet PO 125 mcg DAILY RANDOLPH Administration Escitalopram Oxalate 20 mg 07/02/23 09:00 07/04/23 09:06 Escitalopram Oxalate 10 Mg Tablet PO 20 mg DAILY RANDOLPH Administration Fluticasone Propionate 1 spray 07/02/23 09:00 07/04/23 09:22 Fluticasone Propionate 0.05% Na Spr 16 Gm Btl (*Bkc) NASAL Not
--- NOTE | 2023-07-04 15:59 | PM.IMPN ---
Progress Note: A&P Assessment and Plan (1) Acute urinary retention: Code(s): R33.8 - Other retention of urine Status: Acute Assessment and Plan: Maintain Johnson. Continue Tamsulosin. Consider void trial in 1-2 weeks, could be done as outpatient. (2) Bilateral hydronephrosis: Code(s): N13.30 - Unspecified hydronephrosis Status: Acute Assessment and Plan: renal US ordered urology following (3) Gross hematuria: Code(s): R31.0 - Gross hematuria Status: Resolved Assessment and Plan: Now resolved. Suspect this was due to decompressive hematuria. Urine is clear, light yellow today (4) SANTOS (acute kidney injury): Code(s): N17.9 - Acute kidney failure, unspecified Status: Acute Assessment and Plan: Creatinine 2.9 today. eGFR 21 Continue to monitor renal function. (5) Type 2 diabetes mellitus without complication, without long-term current use of insulin: Code(s): E11.9 - Type 2 diabetes mellitus without complications Status: Chronic Assessment and Plan: Continue to hold metformin accuchecks, sliding scale insulin, hypoglycemic protocol (6) Normocytic anemia: Code(s): D64.9 - Anemia, unspecified Status: Acute Assessment and Plan: Possibly due to combination of blood loss and renal failure 10.7 --> 7.7 today Continue to monitor iron started BID PO (7) Cardiac murmur: Code(s): R01.1 - Cardiac murmur, unspecified Status: Acute Assessment and Plan: ECHO done, unrevealing Subjective Date/time seen: 07/04/23 15:59 Interval history: Patient has no complaints today, denies pain. No acute distress. Eager for discharge home. Johnson catheter in place draining clear yellow urine. Urology following, renal US ordered. Will continue to follow recommendations. Review of Systems Review of Systems: All systems reviewed & are unremarkable except as noted in HPI and below Exam Narrative: General: Awake, alert, comfortable, no acute distress HEENT: PERRLA, EOMI CARDIO: RRR Respiratory: Lungs clear to auscultation Abdomen: Nondistended, soft, nontender. BS present : Johnson catheter draining clear yellow urine Skin: Normal coloration, warm and dry Neurologic: No focal neuro deficits noted. A&O x3 Psychiatric: Appropriate mood and affect, judgment and insight intact Objective Data Vital Signs Vital Signs: Vital Signs - 24 hr 07/03/23 19:24 07/03/23 19:30 07/03/23 20:42 Temperature 99.1 F Pulse Rate 81 Respiratory Rate 16 17 Blood Pressure 133/52 L Pulse Oximetry 98 Oxygen Delivery Room Air Fraction of Inspired Oxygen 07/04/23 04:31 07/04/23 07:48 07/04/23 07:48 Temperature 98.6 F Pulse Rate 70 73 Respiratory Rate 16 18 Blood Pressure 120/53 L Pulse Oximetry 99 98 Oxygen Delivery Room Air Fraction of Inspired Oxygen 21 07/04/23 09:06 07/04/23 09:07 07/04/23 14:00 Temperature 98.2 F Pulse Rate 77 77 79 Respiratory Rate 16 Blood Pressure 119/53 L Pulse Oximetry 98 Oxygen Delivery Fraction of Inspired Oxygen Intake/Output Intake/Output: Intake & Output 07/01/23 07/02/23 07/03/23 07/04/23 23:59 23:59 23:59 23:59 Intake Total 4930 5110 2080 Output Total 3200 2350 2300 Balance 1730 2760 -220 Meds/Results Medications: Active Medications Generic Name Dose Route Start Last Admin Trade Name Freq PRN Reason Stop Dose Admin Acetaminophen 650 mg 07/02/23 00:47 Acetaminophen 325 Mg Tablet PO Q4H PRN Mild Pain (1-3) or Fever Albuterol 2 puff 07/02/23 05:27 Albuterol Sulfate (*Sp) Aerosol 1 Puff INHALATION Q4HRT PRN shortness of breath or wheezing Atorvastatin Calcium 20 mg 07/02/23 09:00 07/04/23 09:06 Atorvastatin 20 Mg Tablet PO 20 mg DAILY RANDOLPH Administration Bupropion HCl 100 mg 07/02/23 09:00 07/04/23 09:06 Bupropio
[2023-07-04] MEDS: POLYSACCHARIDE IRON COMPLEX 150 MG CAPSULE PO (17:19)
[2023-07-04 17:28] LABS: Glucose Point of Care 217 mg/dl (65-105)
[2023-07-04] MEDS: INSULIN ASPART (*BKC) 100 UNITS/ML SUB-Q (17:35)
[2023-07-04] MEDS: FLUTICASONE PROPIONATE 0.05% NA SPR 16 GM BTL (*BKC) 1 SPRAY NASAL (20:42)
[2023-07-04] MEDS: QUEtiapine FUMARATE 100 MG TABLET 300 MG PO (20:42)
[2023-07-04] MEDS: MELATONIN 5 MG TABLET 10 MG PO (20:42)
[2023-07-04] MEDS: rOPINIRole HCL 0.25 MG TABLET PO (20:42)
[2023-07-05] VITALS (7 sets, daily range): BP systolic 125–157; BP diastolic 47–69; PULSE 63–77; RESP 18–20; TEMP 36.6–36.9; O2SAT 97–100
[2023-07-05] MEDS: SODIUM CHLORIDE 0.9% IV 1,000 ML 125 ML IV CONT ×3 (03:57→20:23)
[2023-07-05 06:26] LABS: Hematocrit 25.4 % (42.0-52.0); Hemoglobin 8.4 g/dL (14.0-18.0); Mean Corpuscular HGB Conc 33.1 g/dl (32-36); Mean Corpuscular Hemoglobin 29.7 pg (26-34); Mean Corpuscular Volume 89.8 fl (80-100); Mean Platelet Volume 9.8 fl (7.4-10.4); Platelet Count Result 146 k/mm3 (150-375); Red Blood Count 2.83 M/mm3 (4.6-6.20); Red Cell Distribution Width 13.6 % (11.5-14.5); White Blood Count 6.4 K/mm3 (4.5-10.0)
[2023-07-05 06:31] LABS: Anion Gap 4 mmol/L (8-16); Blood Urea Nitrogen 35 mg/dL (9-20); Calcium 8.1 mg/dL (8.4-10.2); Carbon Dioxide 27 mmol/L (22-30); Chloride 111 mmol/L (98-107); Estimated CRCL calculation 24 ml/min; Estimated Glomerular Filt Rate 23; Glucose 108 mg/dL (65-110); Potassium 3.8 mmol/L (3.4-5.0); Sodium 142 mmol/L (137-145)
[2023-07-05 07:10] LABS: Glucose Point of Care 133 mg/dl (65-105)
[2023-07-05] MEDS: FLUTICASONE/SALMETEROL 115-21 MCG INHALER 1 PUFF 2 PUFF INHALATION ×2 (08:24→20:58)
[2023-07-05 08:25] LABS: Glucose Point of Care 104 mg/dl (65-105)
[2023-07-05] MEDS: NICOTINE (*PBKC) 14 MG PATCH 1 PATCH TRANSDERM (09:20)
[2023-07-05] MEDS: POLYSACCHARIDE IRON COMPLEX 150 MG CAPSULE PO ×2 (09:21→17:47)
[2023-07-05] MEDS: ESCITALOPRAM OXALATE 10 MG TABLET 20 MG PO (09:21)
[2023-07-05] MEDS: TAMSULOSIN HCL 0.4 MG CAPSULE PO (09:21)
[2023-07-05] MEDS: DIGOXIN TAB 125 MCG TABLET PO (09:21)
[2023-07-05] MEDS: buPROPion HCL SR (12HR) 100 MG TABCR PO ×2 (09:21→20:24)
[2023-07-05] MEDS: FOLIC ACID 1 MG TABLET PO (09:21)
[2023-07-05] MEDS: QUEtiapine FUMARATE 25 MG TABLET 50 MG PO (09:21)
[2023-07-05] MEDS: METOPROLOL SUCCINATE EXT REL 50 MG TABCR PO (09:22)
[2023-07-05] MEDS: ATORVASTATIN 20 MG TABLET PO (09:23)
--- NOTE | 2023-07-05 09:34 | WPDUROPN2 ---
Progress Note: A&P Assessment and Plan (1) Acute urinary retention: Code(s): R33.8 - Other retention of urine Status: Acute Assessment and Plan: Maintain Johnson. Continue Tamsulosin which was started this admission. Will plan for outpatient void trial in 1-2 weeks if continued improvement in renal function (2) Bilateral hydronephrosis: Code(s): N13.30 - Unspecified hydronephrosis Status: Acute Assessment and Plan: Initial CT with moderate to severe hydronephrosis Renal ultrasound completed yesterday shows mild bilateral hydronephrosis, improved following Johnson catheter placement (3) Gross hematuria: Code(s): R31.0 - Gross hematuria Status: Resolved Assessment and Plan: Now resolved. Suspect this was due to decompressive hematuria. Renal ultrasound suggests large amount of hypoechoic material in the bladder, likely clots. However urine is clear, light yellow; no evidence of ongoing hematuria. Catheter was flushed at the bedside today with return of clear urine, no evidence of clots. Will plan for outpatient cystoscopy (4) SANTOS (acute kidney injury): Code(s): N17.9 - Acute kidney failure, unspecified Status: Acute Assessment and Plan: Slowly improving. Creatinine down to 2.6 today. Continue to monitor renal function. Subjective Subjective Date/Time Seen: 07/05/23 09:34 Interval history: He is feeling well today. Offers no complaints. No issues with Johnson catheter which is draining clear yellow urine. He denies nausea, vomiting, fever, chills. Tolerating his diet. WBC is within normal limits, 6.4. Creatinine trending down, 2.7 today. Review of Systems Review of Systems: All systems reviewed & are unremarkable except as noted in HPI and below Exam Narrative: General: Awake, alert, comfortable, no acute distress HEENT: Normocephalic, atraumatic, sclerae anicteric Respiratory: Normal respiratory effort, no accessory muscle use Abdomen: Nondistended, soft, nontender : Johnson catheter draining clear yellow urine Skin: Normal coloration, warm and dry Neurologic: No focal neuro deficits noted Psychiatric: Appropriate mood and affect, judgment and insight intact Objective Data Vital Signs Vital Signs: Vital Signs - 24 hr 07/04/23 14:00 07/04/23 20:57 07/04/23 20:59 Temperature 98.2 F Pulse Rate 79 79 Respiratory Rate 16 18 Blood Pressure 119/53 L Pulse Oximetry 98 97 Oxygen Delivery Room Air Fraction of Inspired Oxygen 21 07/04/23 22:10 07/05/23 06:00 07/05/23 08:25 Temperature 98.8 F 98.2 F Pulse Rate 78 69 Respiratory Rate 18 20 Blood Pressure 144/67 H 125/51 L Pulse Oximetry 97 98 97 Oxygen Delivery Room Air Fraction of Inspired Oxygen 07/05/23 08:25 07/05/23 09:21 07/05/23 09:22 Temperature Pulse Rate 72 74 74 Respiratory Rate 20 Blood Pressure Pulse Oximetry Oxygen Delivery Fraction of Inspired Oxygen Intake/Output Intake/Output: Intake & Output 07/02/23 07/03/23 07/04/23 07/05/23 23:59 23:59 23:59 23:59 Intake Total 4930 5110 2820 1960 Output Total 3200 2350 4300 2300 Balance 1730 6210 -2900 -340 Meds/Results Medications: Active Medications Generic Name Dose Route Start Last Admin Trade Name Freq PRN Reason Stop Dose Admin Acetaminophen 650 mg 07/02/23 00:47 Acetaminophen 325 Mg Tablet PO Q4H PRN Mild Pain (1-3) or Fever Albuterol 2 puff 07/02/23 05:27 Albuterol Sulfate (*Sp) Aerosol 1 Puff INHALATION Q4HRT PRN shortness of breath or wheezing Atorvastatin Calcium 20 mg 07/02/23 09:00 07/05/23 09:23 Atorvastatin 20 Mg Tablet PO 20 mg DAILY RANDOLPH Administration Bupropion HCl 100 mg 07/02/23 09:00 07/05/23 09:21 Bupropion Hcl Sr (12hr) 100 Mg Tabcr PO 100 mg Q12HR RANDOLPH Administration Dextrose 12.5 gm 07/04/23 16:08 Dextrose 50% 25 Gm/50 Ml Syringe IV PUSH PRN
[2023-07-05 12:07] LABS: Glucose Point of Care 96 mg/dl (65-105)
[2023-07-05] MEDS: FLUTICASONE PROPIONATE 0.05% NA SPR 16 GM BTL (*BKC) 1 SPRAY NASAL ×2 (13:01→20:24)
--- NOTE | 2023-07-05 15:42 | PM.IMPN ---
Progress Note: A&P Assessment and Plan (1) Acute urinary retention: Code(s): R33.8 - Other retention of urine Status: Acute Assessment and Plan: Maintain Johnson. Continue Tamsulosin. Consider void trial in 1-2 weeks, could be done as outpatient. (2) Bilateral hydronephrosis: Code(s): N13.30 - Unspecified hydronephrosis Status: Acute Assessment and Plan: Initial CT with moderate to severe hydronephrosis Renal ultrasound completed yesterday shows mild bilateral hydronephrosis, improved following Johnson catheter placement urology following (3) Gross hematuria: Code(s): R31.0 - Gross hematuria Status: Resolved Assessment and Plan: Now resolved. Suspect this was due to decompressive hematuria. Renal US showed large amount of hypoechoic material in the bladder, likely clots. urine is clear, light yellow; no evidence of ongoing hematuria (4) SANTOS (acute kidney injury): Code(s): N17.9 - Acute kidney failure, unspecified Status: Acute Assessment and Plan: Creatinine 2.6 today. eGFR 23 Continue to monitor renal function. (5) Type 2 diabetes mellitus without complication, without long-term current use of insulin: Code(s): E11.9 - Type 2 diabetes mellitus without complications Status: Chronic Assessment and Plan: Continue to hold metformin accuchecks, sliding scale insulin, hypoglycemic protocol (6) Normocytic anemia: Code(s): D64.9 - Anemia, unspecified Status: Acute Assessment and Plan: Possibly due to combination of blood loss and renal failure 10.7 --> 8.4 today Continue to monitor iron started BID PO (7) Cardiac murmur: Code(s): R01.1 - Cardiac murmur, unspecified Status: Chronic Assessment and Plan: ECHO done, unrevealing Subjective Date/time seen: 07/05/23 15:42 Interval history: Patient has no complaints today, denies pain. No acute distress. Eager for discharge home. Johnson catheter in place draining clear yellow urine. Urology following, plan for d/c when cleared by uro. Will likely be d/c with catheter and void trial outpatient. Review of Systems Review of Systems: All systems reviewed & are unremarkable except as noted in HPI and below Exam Narrative: General: Awake, alert, comfortable, no acute distress HEENT: PERRLA, EOMI CARDIO: RRR Respiratory: Lungs clear to auscultation Abdomen: Nondistended, soft, nontender. BS present : Johnson catheter draining clear yellow urine Skin: Normal coloration, warm and dry Neurologic: No focal neuro deficits noted. A&O x3 Psychiatric: Appropriate mood and affect, judgment and insight intact Objective Data Vital Signs Vital Signs: Vital Signs - 24 hr 07/04/23 20:57 07/04/23 20:59 07/04/23 22:10 Temperature 98.8 F Pulse Rate 79 78 Respiratory Rate 18 18 Blood Pressure 144/67 H Pulse Oximetry 97 97 Oxygen Delivery Room Air Fraction of Inspired Oxygen 21 07/05/23 06:00 07/05/23 08:25 07/05/23 08:25 Temperature 98.2 F Pulse Rate 69 72 Respiratory Rate 20 20 Blood Pressure 125/51 L Pulse Oximetry 98 97 Oxygen Delivery Room Air Fraction of Inspired Oxygen 07/05/23 09:21 07/05/23 09:22 07/05/23 13:35 Temperature 98.5 F Pulse Rate 74 74 63 Respiratory Rate 18 Blood Pressure 132/47 L Pulse Oximetry 100 Oxygen Delivery Fraction of Inspired Oxygen Intake/Output Intake/Output: Intake & Output 07/02/23 07/03/23 07/04/23 07/05/23 23:59 23:59 23:59 23:59 Intake Total 4930 5110 2820 2960 Output Total 3200 2350 4300 3900 Balance 1730 3090 -3881 -940 Meds/Results Medications: Active Medications Generic Name Dose Route Start Last Admin Trade Name Freq PRN Reason Stop Dose Admin Acetaminophen 650 mg 07/02/23 00:47 Acetaminophen 325 Mg Tablet PO Q4H PRN Mild Pain (1-3) or Fever Albuterol 2 puff
[2023-07-05 17:24] LABS: Glucose Point of Care 155 mg/dl (65-105)
[2023-07-05] MEDS: WATER FOR IRRIGATION, STERILE 1,000 ML BOTTLE 1000 ML (17:46)
[2023-07-05] MEDS: MELATONIN 5 MG TABLET 10 MG PO (20:24)
[2023-07-05] MEDS: QUEtiapine FUMARATE 100 MG TABLET 300 MG PO (20:24)
[2023-07-05] MEDS: rOPINIRole HCL 0.25 MG TABLET PO (20:24)
[2023-07-06 05:46] LABS: Hemoglobin 8.2 g/dL (14.0-18.0); Mean Corpuscular HGB Conc 32.8 g/dl (32-36); Mean Corpuscular Hemoglobin 29.6 pg (26-34); Mean Corpuscular Volume 90.3 fl (80-100); Mean Platelet Volume 9.6 fl (7.4-10.4); Platelet Count Result 159 k/mm3 (150-375); Red Blood Count 2.77 M/mm3 (4.6-6.20); Red Cell Distribution Width 13.5 % (11.5-14.5); White Blood Count 5.7 K/mm3 (4.5-10.0)
[2023-07-06 05:59] LABS: Anion Gap 5 mmol/L (8-16); Blood Urea Nitrogen 33 mg/dL (9-20); Calcium 7.9 mg/dL (8.4-10.2); Carbon Dioxide 26 mmol/L (22-30); Chloride 109 mmol/L (98-107); Estimated CRCL calculation 26 ml/min; Estimated Glomerular Filt Rate 25; Glucose 122 mg/dL (65-110); Potassium 3.7 mmol/L (3.4-5.0); Sodium 140 mmol/L (137-145)
[2023-07-06 05:59] LABS: Glucose Point of Care 142 mg/dl (65-105)
[2023-07-06 06:00] VITALS: BP 123/59; PULSE 68; RESP 20; TEMP 36.9; O2SAT 99
[2023-07-06] MEDS: FLUTICASONE/SALMETEROL 115-21 MCG INHALER 1 PUFF 2 PUFF INHALATION (07:59)
[2023-07-06] MEDS: FLUTICASONE PROPIONATE 0.05% NA SPR 16 GM BTL (*BKC) 1 SPRAY NASAL (08:26)
[2023-07-06 08:27] VITALS: PULSE 68
[2023-07-06] MEDS: QUEtiapine FUMARATE 25 MG TABLET 50 MG PO (08:27)
[2023-07-06] MEDS: FOLIC ACID 1 MG TABLET PO (08:27)
[2023-07-06] MEDS: NICOTINE (*PBKC) 14 MG PATCH 1 PATCH TRANSDERM (08:27)
[2023-07-06] MEDS: METOPROLOL SUCCINATE EXT REL 50 MG TABCR PO (08:27)
[2023-07-06] MEDS: TAMSULOSIN HCL 0.4 MG CAPSULE PO (08:27)
[2023-07-06] MEDS: DIGOXIN TAB 125 MCG TABLET PO (08:27)
[2023-07-06] MEDS: ATORVASTATIN 20 MG TABLET PO (08:27)
[2023-07-06] MEDS: ESCITALOPRAM OXALATE 10 MG TABLET 20 MG PO (08:27)
[2023-07-06] MEDS: POLYSACCHARIDE IRON COMPLEX 150 MG CAPSULE PO (08:28)
[2023-07-06] MEDS: buPROPion HCL SR (12HR) 100 MG TABCR PO (08:28)
[2023-07-06 08:36] LABS: Glucose Point of Care 111 mg/dl (65-105)
--- NOTE | 2023-07-06 09:53 | WPDUROPN2 ---
Progress Note: A&P Assessment and Plan (1) Acute urinary retention: Code(s): R33.8 - Other retention of urine Status: Acute Assessment and Plan: Maintain Johnson. Continue Tamsulosin which was started this admission. Will plan for outpatient void trial in 1-2 weeks. Okay for discharge from urologic standpoint. Patient will be educated on Johnson catheter care and management. (2) Bilateral hydronephrosis: Code(s): N13.30 - Unspecified hydronephrosis Status: Acute Assessment and Plan: Initial CT 07/01/2023 with moderate to severe hydronephrosis Renal ultrasound completed 07/04/2023 shows mild bilateral hydronephrosis, improved following Johnson catheter placement (3) Gross hematuria: Code(s): R31.0 - Gross hematuria Status: Resolved Assessment and Plan: Now resolved. Suspect this was due to rapid decompression following Johnson catheter placement Renal ultrasound suggests large amount of hypoechoic material in the bladder, likely clots. However urine is clear, light yellow; no evidence of ongoing hematuria. Catheter was flushed at the bedside on 07/04 with return of clear urine, no evidence of clots. Will plan for outpatient cystoscopy (4) SANTOS (acute kidney injury): Code(s): N17.9 - Acute kidney failure, unspecified Status: Acute Assessment and Plan: Slowly improving. Creatinine down to 2.5 today. Would recommend renal function be followed on discharge to ensure continued improvement/returned to baseline Subjective Subjective Date/Time Seen: 07/06/23 09:53 Interval history: Manuel is feeling well today. Offers no concerns. He is very eager for discharge home. Johnson catheter is draining clear yellow urine. Review of Systems Review of Systems: All systems reviewed & are unremarkable except as noted in HPI and below Exam Narrative: General: Awake, alert, comfortable, no acute distress HEENT: Normocephalic, atraumatic, sclerae anicteric Respiratory: Normal respiratory effort, no accessory muscle use Abdomen: Nondistended, soft, nontender : Johnson catheter draining clear yellow urine Skin: Normal coloration, warm and dry Neurologic: No focal neuro deficits noted Psychiatric: Appropriate mood and affect, judgment and insight intact Objective Data Vital Signs Vital Signs: Vital Signs - 24 hr 07/05/23 13:35 07/05/23 20:58 07/05/23 22:00 Temperature 98.5 F 97.9 F Pulse Rate 63 77 75 Respiratory Rate 18 20 Blood Pressure 132/47 L 157/69 H Pulse Oximetry 100 97 98 Oxygen Delivery Room Air 07/06/23 08:27 07/06/23 08:27 07/06/23 06:00 Temperature 98.4 F Pulse Rate 68 68 68 Respiratory Rate 20 Blood Pressure 123/59 L Pulse Oximetry 99 Oxygen Delivery 07/06/23 08:24 Temperature Pulse Rate Respiratory Rate Blood Pressure Pulse Oximetry Oxygen Delivery Room Air Intake/Output Intake/Output: Intake & Output 07/03/23 07/04/23 07/05/23 07/06/23 23:59 23:59 23:59 23:59 Intake Total 5110 2820 4440 690 Output Total 2350 4300 4900 2300 Balance 8203 -1830 -457 -2860 Meds/Results Medications: Active Medications Generic Name Dose Route Start Last Admin Trade Name Freq PRN Reason Stop Dose Admin Acetaminophen 650 mg 07/02/23 00:47 Acetaminophen 325 Mg Tablet PO Q4H PRN Mild Pain (1-3) or Fever Albuterol 2 puff 07/02/23 05:27 Albuterol Sulfate (*Sp) Aerosol 1 Puff INHALATION Q4HRT PRN shortness of breath or wheezing Atorvastatin Calcium 20 mg 07/02/23 09:00 07/06/23 08:27 Atorvastatin 20 Mg Tablet PO 20 mg DAILY RANDOLPH Administration Bupropion HCl 100 mg 07/02/23 09:00 07/06/23 08:28 Bupropion Hcl Sr (12hr) 100 Mg Tabcr PO 100 mg Q12HR RANDOLPH Administration Dextrose 12.5 gm 07/04/23 16:08 Dextrose 50% 25 Gm/50 Ml Syringe IV PUSH PRN PRN Hypoglycemia Protocol Digoxin 125 mcg 07/02/23 09:00 07/06/23
--- NOTE | 2023-07-06 11:51 | P.DS_ITS ---
DS: Admitting Diagnosis Discharge Date 07/06/23 Admitting Diagnosis SANTOS, Acute on Chronic Kidney failure, Bladder obstruction DS: Discharge Diagnosis Discharge Diagnosis (1) Acute urinary retention: Code(s): R33.8 - Other retention of urine Status: Acute Assessment and Plan: * Maintain Johnson. * Continue Tamsulosin. * Consider void trial in 1-2 weeks, could be done as outpatient. * 07/06/23 * Discharge and F/U with PCP. * continue Johnson with leg bag education * continue tamsulosin * follow-up with urology for outpatient void trial (2) Bilateral hydronephrosis: Code(s): N13.30 - Unspecified hydronephrosis Status: Acute Assessment and Plan: * Initial CT with moderate to severe hydronephrosis * Renal ultrasound completed yesterday shows mild bilateral hydronephrosis, improved following Johnson catheter placement * urology following * 07/06/23 * improved a Johnson catheter placement * urology okay to discharge home- Johnson remains in place (3) Gross hematuria: Code(s): R31.0 - Gross hematuria Status: Resolved Assessment and Plan: * Now resolved. Suspect this was due to decompressive hematuria. * Renal US showed large amount of hypoechoic material in the bladder, likely clots. * urine is clear, light yellow; no evidence of ongoing hematuria * 07/06/23 * hematuria is resolved urine is clear and yellow * patient is without pain * okay to discharge per Urology- Johnson remains in place * resume Xarelto on discharge * urology plans for outpatient cystoscopy (4) SANTOS (acute kidney injury): Code(s): N17.9 - Acute kidney failure, unspecified Status: Acute Assessment and Plan: * Creatinine 2.6 today. * eGFR 23 * Continue to monitor renal function. * 07/06/23 * creatinine 0.5 today- continues to improve * eGFR 25 * follow renal function with PCP discharge- for continued improvement/ return to baseline (5) Type 2 diabetes mellitus without complication, without long-term current use of insulin: Code(s): E11.9 - Type 2 diabetes mellitus without complications Status: Chronic Assessment and Plan: * Continue to hold metformin * accuchecks, sliding scale insulin, hypoglycemic protocol * 07/06/23 * patient stated he does not take his metformin home, and most likely will not resume on discharge * continue to hold home metformin at discharge, until CMP lab results and follow-up with PCP * continue home glucose monitoring (6) Normocytic anemia: Code(s): D64.9 - Anemia, unspecified Status: Acute Assessment and Plan: * Possibly due to combination of blood loss and renal failure * 10.7 --> 8.4 today * Continue to monitor * iron started BID PO * 07/06/23 * hemoglobin 8.2 today * hematuria has resolved, patient notes no further bleeding episodes * continue iron at discharge (7) Cardiac murmur: Code(s): R01.1 - Cardiac murmur, unspecified Status: Chronic Assessment and Plan: * ECHO done, unrevealing * continue current hospital dose digoxin and to followup lab results and follow-up with the PCP DS: Summary Hospital Course Reason for hospitalization: SANTOS, Acute on Chronic Kidney failure, Bladder obstruction Hospital Course: Chief Complaint: Renal failure on outpatient labs Narrative: 77-year-old male with past medical history of hyperlipidemia, COPD, chronic atrial fibrillation on chronic anticoagulation among other medical comorbidities who
--- NOTE | 2023-07-06 11:51 | PM.DS ---
DS: Admitting Diagnosis Discharge Date 07/06/23 Admitting Diagnosis SANTOS, Acute on Chronic Kidney failure, Bladder obstruction DS: Discharge Diagnosis Discharge Diagnosis (1) Acute urinary retention: Code(s): R33.8 - Other retention of urine Status: Acute Assessment and Plan: Maintain Johnson. Continue Tamsulosin. Consider void trial in 1-2 weeks, could be done as outpatient. 07/06/23 Discharge and F/U with PCP. continue Johnson with leg bag education continue tamsulosin follow-up with urology for outpatient void trial (2) Bilateral hydronephrosis: Code(s): N13.30 - Unspecified hydronephrosis Status: Acute Assessment and Plan: Initial CT with moderate to severe hydronephrosis Renal ultrasound completed yesterday shows mild bilateral hydronephrosis, improved following Johnson catheter placement urology following 07/06/23 improved a Johnson catheter placement urology okay to discharge home- Johnson remains in place (3) Gross hematuria: Code(s): R31.0 - Gross hematuria Status: Resolved Assessment and Plan: Now resolved. Suspect this was due to decompressive hematuria. Renal US showed large amount of hypoechoic material in the bladder, likely clots. urine is clear, light yellow; no evidence of ongoing hematuria 07/06/23 hematuria is resolved urine is clear and yellow patient is without pain okay to discharge per Urology- Johnson remains in place resume Xarelto on discharge urology plans for outpatient cystoscopy (4) SANTOS (acute kidney injury): Code(s): N17.9 - Acute kidney failure, unspecified Status: Acute Assessment and Plan: Creatinine 2.6 today. eGFR 23 Continue to monitor renal function. 07/06/23 creatinine 0.5 today- continues to improve eGFR 25 follow renal function with PCP discharge- for continued improvement/ return to baseline (5) Type 2 diabetes mellitus without complication, without long-term current use of insulin: Code(s): E11.9 - Type 2 diabetes mellitus without complications Status: Chronic Assessment and Plan: Continue to hold metformin accuchecks, sliding scale insulin, hypoglycemic protocol 07/06/23 patient stated he does not take his metformin home, and most likely will not resume on discharge continue to hold home metformin at discharge, until CMP lab results and follow-up with PCP continue home glucose monitoring (6) Normocytic anemia: Code(s): D64.9 - Anemia, unspecified Status: Acute Assessment and Plan: Possibly due to combination of blood loss and renal failure 10.7 --> 8.4 today Continue to monitor iron started BID PO 07/06/23 hemoglobin 8.2 today hematuria has resolved, patient notes no further bleeding episodes continue iron at discharge (7) Cardiac murmur: Code(s): R01.1 - Cardiac murmur, unspecified Status: Chronic Assessment and Plan: ECHO done, unrevealing continue current hospital dose digoxin and to followup lab results and follow-up with the PCP DS: Summary Hospital Course Reason for hospitalization: SANTOS, Acute on Chronic Kidney failure, Bladder obstruction Hospital Course: Chief Complaint: Renal failure on outpatient labs Narrative: 77-year-old male with past medical history of hyperlipidemia, COPD, chronic atrial fibrillation on chronic anticoagulation among other medical comorbidities who presented to the ER after outpatient labs demonstrated acute renal failure. The patient reports that he was getting his yearly labs and got a call that his creatinine was elevated and he needed to go to the ER. In hindsight he now realizes that he was probably having difficulty urinating for a while. He reports he has had a weak urinary stream for at least 1 month. He has had increased urinary urgency and sensation of incomplete bladder emptying. He denied any dysuria or or gross hematuria. Zoila
[2023-07-06 12:12] LABS: Glucose Point of Care 122 mg/dl (65-105)
== END 2023-07-06 15:02 | disposition home or self-care (01) | DRG 683 ==
LOC: ANHED 07-02 00:58 → ANH3MED 07-02 02:36
PROVIDERS: Emergency Medicine; Internal Medicine; Admitting Provider Internal Medicine; Emergency Provider Emergency Medicine; PCP Family Medicine; Visit Provider Nurse Practitioner Family
DX: N17.9 Acute kidney failure, unspecified (principal); I48.20 Chronic atrial fibrillation, unspecified; N13.8 Other obstructive and reflux uropathy; R33.8 Other retention of urine; N13.30 Unspecified hydronephrosis; R31.0 Gross hematuria; D50.0 Iron deficiency anemia secondary to blood loss (chronic); R01.1 Cardiac murmur, unspecified; N32.0 Bladder-neck obstruction; D63.1 Anemia in chronic kidney disease; E11.22 Type 2 diabetes mellitus with diabetic chronic kidney disease; N18.9 Chronic kidney disease, unspecified; E78.2 Mixed hyperlipidemia; J44.9 Chronic obstructive pulmonary disease, unspecified; R33.9 Retention of urine, unspecified; G47.33 Obstructive sleep apnea (adult) (pediatric); G25.81 Restless legs syndrome; F43.10 Post-traumatic stress disorder, unspecified; N40.1 Benign prostatic hyperplasia with lower urinary tract symptoms; M47.892 Other spondylosis, cervical region; M17.11 Unilateral primary osteoarthritis, right knee; F17.210 Nicotine dependence, cigarettes, uncomplicated; Z90.49 Acquired absence of other specified parts of digestive tract; Z86.16 Personal history of COVID-19; Z79.01 Long term (current) use of anticoagulants; Z91.148 Patient's other noncompliance with medication regimen for other reason
CPT/HCPCS: 36415; 74176; 76775; 80048; 80053; 80162; 81001; 82948; 83540; 83550; 85025; 85027; 93306; 94640; 96360; 96361; 99285; A9270; G0378; J1815; J7030